=== PATIENT | male | born 1990 | race Caucasian/White ===

== ENCOUNTER 2017-10-22 10:49 | Emergency (ER) | payer OTHER ==
[~2017-10-22] VITALS: Ht 180.3 cm; Wt 95.2 kg
[2017-10-22 10:53] VITALS: BP 142/79; Ht 180.3 cm; Wt 95.2 kg
== END 2017-10-22 13:10 | disposition home or self-care (01) ==
LOC: ED 10:49
DX: K62.5 Hemorrhage of anus and rectum (principal); R10.32 Left lower quadrant pain